=== PATIENT | male | born 1995 | race Caucasian/White ===

== ENCOUNTER 2017-11-11 19:40 | Emergency (ER) | payer MEDICAID ==
[~2017-11-11] VITALS: Ht 175.3 cm; Wt 64.9 kg
[2017-11-11 19:56] VITALS: BP 112/66
[2017-11-11] MEDS ORDERED: cefTRIAXone SOD 1,000 MG VL IM ONE (21:00)
== END 2017-11-11 22:32 | disposition home or self-care (01) ==
LOC: ER 19:40
DX: K12.2 Cellulitis and abscess of mouth (principal); F12.10 Cannabis abuse, uncomplicated; F17.210 Nicotine dependence, cigarettes, uncomplicated
CPT/HCPCS: 70486; 96372; 99284; J0696